=== PATIENT | female | born 1930 | race Caucasian/White ===

== ENCOUNTER 2017-09-05 13:36 | Emergency (ER) | payer OTHER ==
[~2017-09-05] VITALS: Ht 167.6 cm; Wt 56.7 kg
[~2017-09-05 13:36] MED LIST: ALEVE220 MG PO; CELEBREX 200 M200 M1; LEVOTHYROXIN0.137 M1 PO; MIRALAX17 GM PO; MOBIC15 MG PO; NYSTATIN 1100000 U/M; ONDANSETRON HCL4 M2 PO; PROTONIX40 M1; REMERON15 MG PO; TIZANIDINE HCL2 M1 PO; TYLENOL325 MG PO; ZOFRAN ODT4 MG DISSOLVE
[2017-09-05 14:10] LABS: ABSOLUTE NEUTROPHILS 6.5 thou/uL (1.4-8.2); BASOPHILS 0.4 % (0.0-2.0); EOSINOPHILS 0.1 % (0.0-3.0); HEMATOCRIT 35.1 % (37.0-47.0); HEMOGLOBIN 11.6 gm/dL (12.0-15.0); LYMPHOCYTES 7.3 % (24.0-44.0); MCH 30.6 pg (26.0-34.0); MCHC 32.9 g/dL (28.0-37.0); MONOCYTES 3.1 % (1.0-8.0); PLATELET COUNT 180 thou/uL (150-400); POLYS 89.1 % (36.0-66.0); RBC 3.77 mil/uL (4.20-5.00); RDW 13.1 % (10.5-14.5); WBC 7.3 thou/uL (4.0-11.0)
[2017-09-05 14:15] LABS: CREATININE 0.9 mg/dL (0.6-1.0); POTASSIUM 4.3 mmol/L (3.5-5.1)
[2017-09-05 14:21] LABS: ALBUMIN 3.7 g/dL (3.4-5.0); DIRECT BILIRUBIN 0.1 mg/dL (<0.1-0.3); TOTAL BILIRUBIN 0.6 mg/dL (<0.1-1.0)
[2017-09-05 15:15] LABS: URINE BILIRUBIN NEGATIVE (Negative); URINE BLOOD TRACE (Negative); URINE CLARITY CLEAR; URINE COLOR YELLOW; URINE GLUCOSE-RANDOM* NEGATIVE (Negative); URINE KETONES 2+ (Negative); URINE LEUKOCYTES NEGATIVE (Negative); URINE NITRITE NEGATIVE (Negative); URINE PROTEIN (DIPSTICK) NEGATIVE (Negative); URINE UROBILINOGEN 0.2 E.U./dl (0.2-1.0)
[2017-09-05] MEDS ORDERED: ZOFRAN ODT4 MG PO (16:16)
[2017-09-05] MEDS ORDERED: PHENERGAN 25 MG25 M1 PO (16:16)
[2017-09-05 17:11] VITALS: BP 139/71
[2018-04-16] MEDS ORDERED: ALEVE220 MG PO (17:30)
[2018-04-16] MEDS ORDERED: MIRALAX17 GM PO (17:30)
[2018-04-20] MEDS ORDERED: VOLTAREN GEL 1100 G2 TOP (12:40)
== END 2017-09-05 17:12 | disposition home or self-care (01) ==
LOC: ER 13:36
PROVIDERS: Emergency Medicine
DX: K52.9 Noninfective gastroenteritis and colitis, unspecified (principal); N28.9 Disorder of kidney and ureter, unspecified; E03.9 Hypothyroidism, unspecified

== ENCOUNTER 2018-06-30 18:53 | Emergency (ER) | payer OTHER ==
[~2018-06-30] VITALS: Ht 144.8 cm; Wt 54.4 kg
--- NOTE | ~2018-06-30 | EKG ---
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1930 Requested By: Shakeel Montgomery Order Number: [id number] MD: Anthony Bernabe Measurements Intervals [place] Rate: 66 P: 21 DC: 147 QRS: -21 QRSD: 103 T: 6 QT: 448 QTc: 470 Interpretive Statements Sinus rhythm Probable left ventricular hypertrophy Compared to ECG 06/09/2016 15:42:37 Sinus arrhythmia no longer present Ventricular premature complex(es) no longer present Electronically Signed On 07-01-2018 14:19:51 EMERGENCY CARE ATTENDANT by Anthony Bernabe [email or web address] <ELECTRONICALLY SIGNED> By: Anthony Bernabe MD 07/01/18 1419 29 29 Anthony Bernabe MD /KAROLINE
[~2018-06-30 18:53] MED LIST changes: +PHENERGAN 25 MG25 M1 PO; +VOLTAREN GEL 1100 G2 TOP; +ZOFRAN ODT4 MG PO
[2018-06-30] MEDS ORDERED: METAMUCIL660 GM PO (19:31)
[2018-06-30 20:04] LABS: BASOPHILS 0.3 % (0.0-2.0); EOSINOPHILS 0.7 % (0.0-3.0); HEMATOCRIT 33.4 % (37.0-47.0); HEMOGLOBIN 11.2 gm/dL (12.0-15.0); LYMPHOCYTES 23.9 % (24.0-44.0); MCH 30.8 pg (26.0-34.0); MCHC 33.5 g/dL (28.0-37.0); MCV 91.7 fL (80.0-100.0); MONOCYTES 9.6 % (1.0-8.0); PLATELET COUNT 193 thou/uL (150-400); POLYS 65.5 % (36.0-66.0); RBC 3.64 mil/uL (4.20-5.00); RDW 12.9 % (10.5-14.5); WBC 6.2 thou/uL (4.0-11.0)
[2018-06-30 20:07] LABS: ANION GAP 10 mmol/L (7-16); BUN 14 mg/dL (7-18); CALCIUM 9.4 mg/dL (8.5-10.1); CHLORIDE 92 mmol/L (98-107); CO2 24 mmol/L (21-32); CREATININE 0.9 mg/dL (0.6-1.0); GLUCOSE 108 mg/dL (74-106); POTASSIUM 4.3 mmol/L (3.5-5.1); SODIUM 126 mmol/L (136-145)
[2018-06-30 20:16] LABS: ALBUMIN 3.6 g/dL (3.4-5.0); LIPASE 100 U/L (73-393); SGOT 25 U/L (15-37); SGPT 21 U/L (30-65); TOTAL BILIRUBIN 0.5 mg/dL (<0.1-1.0); TOTAL PROTEIN 8.5 g/dL (6.4-8.2); TROPONIN-I <0.06 ng/mL (<0.06)
[2018-06-30 21:03] LABS: URINE BILIRUBIN NEGATIVE (Negative); URINE BLOOD TRACE (Negative); URINE CLARITY CLEAR; URINE COLOR YELLOW; URINE GLUCOSE-RANDOM* NEGATIVE (Negative); URINE KETONES 1+ (Negative); URINE LEUKOCYTES-REFLEX NEGATIVE (Negative); URINE NITRITE-REFLEX NEGATIVE (Negative); URINE PROTEIN (DIPSTICK) NEGATIVE (Negative); URINE SPECIFIC GRAVITY 1.025 (1.005-1.035); URINE UROBILINOGEN 0.2 E.U./dl (0.2-1.0)
[2018-06-30] MEDS ORDERED: ONDANSETRON HCL4 M2 PO (21:40)
[2018-06-30 22:01] VITALS: BP 129/68
== END 2018-06-30 22:04 | disposition home or self-care (01) ==
LOC: ER 18:53
PROVIDERS: Physician Assistant
DX: E87.1 Hypo-osmolality and hyponatremia (principal); R11.2 Nausea with vomiting, unspecified; E03.9 Hypothyroidism, unspecified; J34.89 Other specified disorders of nose and nasal sinuses; M25.471 Effusion, right ankle; M25.472 Effusion, left ankle

== ENCOUNTER → 2018-10-05 | Outpatient (CLI) | payer OTHER ==
[~2018-10-05] MED LIST changes: +METAMUCIL660 GM PO
== END ==
LOC: RAD 09:22
DX: I51.7 Cardiomegaly (principal); M47.814 Spondylosis without myelopathy or radiculopathy, thoracic region

== ENCOUNTER 2018-12-24 18:58 | Inpatient (IN) | payer OTHER ==
[~2018-12-24] VITALS: Ht 162.6 cm; Wt 57.2 kg
[2018-12-24 19:21] LABS: URINE BILIRUBIN NEGATIVE (Negative); URINE BLOOD TRACE (Negative); URINE CLARITY CLEAR; URINE COLOR YELLOW; URINE GLUCOSE-RANDOM* NEGATIVE (Negative); URINE KETONES TRACE (Negative); URINE LEUKOCYTES-REFLEX NEGATIVE (Negative); URINE NITRITE-REFLEX NEGATIVE (Negative); URINE PROTEIN (DIPSTICK) NEGATIVE (Negative)
[2018-12-24 19:23] VITALS: BP 164/87
[2018-12-24 20:23] LABS: HEMATOCRIT 31.8 % (37.0-47.0); HEMOGLOBIN 10.7 gm/dL (12.0-15.0); MCH 31.2 pg (26.0-34.0); MCHC 33.6 g/dL (28.0-37.0); MCV 92.7 fL (80.0-100.0); PLATELET COUNT 186 thou/uL (150-400); RBC 3.42 mil/uL (4.20-5.00); RDW 13.3 % (10.5-14.5); WBC 4.8 thou/uL (4.0-11.0)
[2018-12-24 20:32] LABS: ANION GAP 8 mmol/L (7-16); BUN 19 mg/dL (7-18); CALCIUM 8.8 mg/dL (8.5-10.1); CHLORIDE 98 mmol/L (98-107); CO2 25 mmol/L (21-32); CREATININE 1.1 mg/dL (0.6-1.0); GLUCOSE 109 mg/dL (74-106); POTASSIUM 3.8 mmol/L (3.5-5.1); SODIUM 131 mmol/L (136-145)
[2018-12-24 20:41] LABS: MAGNESIUM 1.9 mg/dL (1.8-2.4); TROPONIN-I <0.06 ng/mL (<0.06)
[2018-12-24 20:55] LABS: ABSOLUTE NEUTROPHILS 2.5 thou/uL (1.4-8.2); ATYPICAL LYMPHS 4 %; LARGE PLATELETS RARE
[2018-12-24 21:49] VITALS: BP 162/76
[2018-12-24 22:26] VITALS: BP 162/76
--- NOTE | 2018-12-25 04:04 | NUR ---
ASSUMED CARE OF PT AT 2235hrs. PT IS AOX4. PT WAS ORIENTED TO THE ROOM. DAUGHTER AT BEDSIDE. NO N/V AT THIS TIME. CHIEF COMPLAINT OF GENERALIZED PAIN AND WEAKNESS. ASSESSMENT WAS NEGATIVE EXCEPT BLE EDEMA. DR SZYMANSKI WAS NOTIFIED AND SOME ORDERS WERE RECEIVED. THE NIGHT PROGRESSED, PT WAS ABLE TO GET SOME SLEEP. NO FURTHER N/V THIS SHIFT. NO OTHER S/S OF ACUTE DISTRESS. FALL PRECAUTION IN PLACE. FAMILY AT BEDSIDE. WILL CONTINUE TO MONITOR.
[2018-12-25 06:18] VITALS: BP 156/84
[2018-12-25] MEDS ORDERED: TRAMADOL 50 MG50 MG PO (07:55)
[2018-12-25 08:55] VITALS: BP 128/57
[2018-12-25 10:51] LABS: CALCIUM 8.8 mg/dL (8.5-10.1); CREATININE 0.9 mg/dL (0.6-1.0)
--- NOTE | 2018-12-25 12:44 | NUR ---
TOWARDS POC PT A/OX4, VSS, AFEBRILE.PAIN AND NV MANAGED BY MEDS. ONETIME SUPP. GIVEN. STILL NO BM NOTED. FAMILY AT BEDSIDE. WILL CONTINUE TO MONITOR.
[2018-12-25 19:57] VITALS: BP 138/84
--- NOTE | 2018-12-26 01:52 | NUR ---
ASSUMED CARE OF PT 1900HRS. PT IS AOX4 AND WAS ABLE TO SLEEP PART OF THE SHIFT. PT DID EXPERIENCE NAUSEA AND WAS TREATED WITH MEDICATION. PT IS STILL UNABLE TO TOLERATE PO NUTRITION. FAMILY IS INTERESTESTED IN AN ALTERNATIVE ANTIEMETIC.NO OTHER S/S OF ACUTE DISTRESS. WILL CONTINUE TO MONITOR.
[2018-12-26 04:09] VITALS: BP 159/84
[2018-12-26 07:05] VITALS: BP 152/78
--- NOTE | 2018-12-26 08:14 | EKG ---
[place] [address] [email or web address] [place] [address] ELECTROCARDIOGRAM REPORT Name: WILBERT DANIELRICIA Room #: 449-I ADM IN M.R.#: [id number] ������������������ Admission: 12/24/18 ������������������ Attend Phys: Yonis Morocho MD Discharge: ������������������ Date of : 32 Report #: [id number] ����������������������������������������������������������������� [id number] THIS REPORT FOR: //name// [facility] ED Test Date: 2018-12-24 Test Time: 19:24:37 Pat Name: LUISITO DANIEL Department: Room: [facility] Gender: F Guide Travel: jessica : 1930 Requested By: Harpal Lilly Order Number: [id number] MD: Filiberto Marcus Measurements Intervals [place] Rate: 75 P: 45 IN: 158 QRS: -24 QRSD: 111 T: 35 QT: 400 QTc: 447 Interpretive Statements Sinus rhythm, APCs Probable left ventricular hypertrophy Compared to ECG 06/30/2018 19:30:47 Sinus rhythm no longer present Electronically Signed On 12-26-2018 8:13:56 CDT by Filiberto Marcus [email or web address] ��������������������������������������������� <ELECTRONICALLY SIGNED> ���������������������������������������� By: Filiberto Marcus MD ��������������������������������������������� 12/26/18 08 D: 05/1922 23 Filiberto Marcus MD /KAROLINE
[2018-12-26 09:15] VITALS: BP 152/78
--- NOTE | 2018-12-26 09:25 | NUR ---
DIS PT IS FOR DC. IV DC'D. NO COMPLAINT OF VOMITING. PT EAT MOST OF THE BREAKFAST. DC PACKET AND MED SCRIPTS PROVIDED.
== END 2018-12-26 10:00 | disposition home or self-care (01) | DRG 392 ==
LOC: ER 18:58 → EROBS 21:08 → 4W 22:27
PROVIDERS: Emergency Medicine; ADMIT Family Medicine
DX: K59.00 Constipation, unspecified (principal); M19.90 Unspecified osteoarthritis, unspecified site
CPT/HCPCS: 10047